=== PATIENT | male | born 1940 | race Caucasian/White ===

== ENCOUNTER 2021-08-20 14:03 | Outpatient (CLI) | payer MEDICARE | END 2021-08-20 23:59 | disposition home or self-care (01) | LOC: CFH 14:03 | PROVIDERS: ATTEND Internal Medicine Cardiovascular Disease | DX: I25.10 Atherosclerotic heart disease of native coronary artery without angina pectoris (principal); J84.10 Pulmonary fibrosis, unspecified; I10 Essential (primary) hypertension; R06.02 Shortness of breath; E78.5 Hyperlipidemia, unspecified; I70.0 Atherosclerosis of aorta; M51.34 Other intervertebral disc degeneration, thoracic region; J84.9 Interstitial pulmonary disease, unspecified | CPT/HCPCS: 71250; 75571 ==